=== PATIENT | female | born 1995 | race Two or more races ===

== ENCOUNTER 2018-05-15 17:57 | Inpatient (IN) | payer MEDICAID ==
[~2018-05-15] VITALS: Ht 165.1 cm; Wt 54.5 kg
[2018-05-15] MEDS ORDERED: ZOLPIDEM TARTRATE 10 MG TABLET PO PRN (20:30)
[2018-05-15 20:42] VITALS: BP 138/91
[2018-05-15] MEDS ORDERED: IBUPROFEN 800 MG TABLET PO PRN (21:45)
[2018-05-16 05:23] VITALS: BP 133/79
[2018-05-16] MEDS: LORazepam 2 MG TABLET PO PRN ×3 (05:34→16:23)
[2018-05-16 08:22] LABS: BASOPHILS % (AUTO) 0.5 % (0.0-2.0); EOSINOPHILS % (AUTO) 5.2 % (1.0-6.0); HEMATOCRIT 41.4 % (36-46); HEMOGLOBIN 14.3 g/dL (12.0-16.0); LYMPHOCYTES # (AUTO) 1.7 K/uL (1.0-4.8); MEAN CORPUSCULAR HEMOGLOBIN 32.5 pg (26.0-34.0); MEAN CORPUSCULAR HGB CONC 34.4 G/dL (31.0-37.0); MEAN CORPUSCULAR VOLUME 94 fL (80-100); MONOCYTES # (AUTO) 0.6 K/uL (0.1-1.0); MONOCYTES % (AUTO) 8.6 % (2.0-9.0); NEUTROPHILS # (AUTO) 4.5 K/uL (1.8-7.7); NEUTROPHILS % (AUTO) 62.7 % (40.0-70.0); PLATELET COUNT (AUTO) 212 K/uL (150-450); RED BLOOD CELL COUNT(AUTO) 4.39 MIL/uL (4.00-5.20); RED CELL DISTRIBUTION WIDTH 13.7 % (11.5-14.5)
[2018-05-16 09:00] LABS: ALANINE AMINOTRANSFERASE 22 U/L (12-78); ALBUMIN 3.8 g/dL (3.4-5.0); ALKALINE PHOSPHATASE 54 U/L (46-116); ANION GAP 6 mmol/L (8-16); ASPARTATE AMINOTRANSFERASE 27 U/L (15-37); BILIRUBIN,TOTAL 0.3 mg/dL (0.1-1.0); CALCIUM, TOTAL 8.9 mg/dL (8.8-10.5); CARBON DIOXIDE 31 mmol/L (22-29); CHLORIDE 101 mmol/L (98-107); CHOL/HDL RATIO 2.2 (3.9-5.7); CHOLESTEROL 129 mg/dL (131-200); CREATININE 0.74 mg/dL (0.60-1.30); FREE T4 (FREE THYROXINE) 1.09 ng/dL (0.76-1.46); GLOMERULAR FILTR. RATE CALC > 60 mL/min (>60); GLUCOSE,RANDOM 96 mg/dL (70-110); HCG,QUANTITATIVE < 1 mIU/mL (0-6); HDL CHOLESTEROL 59 mg/dL (40-60); LDL CHOL (CALC.) 61 mg/dL (0-130); POTASSIUM 4.3 mmol/L (3.5-5.1); SODIUM SERUM 138 mmol/L (136-145); THYROID STIMULATING HORMONE 1.68 uIU/mL (0.36-3.74); TOTAL PROTEIN, SERUM 6.8 g/dL (6.4-8.2); TRIGLYCERIDES 47 mg/dL (15-150); UREA NITROGEN, BLOOD 14 mg/dL (7-18)
[2018-05-16 16:12] VITALS: BP 122/79
[2018-05-16] MEDS: HALOPERIDOL 5 MG TABLET PO PRN (16:23)
[2018-05-16] MEDS ORDERED: MAG HYDROX/AL HYDROX/SIMETH ES 30 ML SUSPENSION UDCUP PO PRN (19:00)
[2018-05-16] MEDS ORDERED: PETROLATUM,WHITE 71 GM JELLY TP PRN (19:00)
[2018-05-16] MEDS ORDERED: LOPERAMIDE HCL 2 MG CAPSULE PO PRN (19:00)
[2018-05-16] MEDS ORDERED: DOCUSATE SODIUM 100 MG CAPSULE PO PRN (19:00)
[2018-05-16] MEDS ORDERED: IBUPROFEN 600 MG TABLET PO PRN (19:00)
[2018-05-16] MEDS ORDERED: ALBUTEROL SULFATE HFA 90 MCG/PUFF 8 GM INHALER IH PRN (19:00)
[2018-05-16] MEDS ORDERED: BENZOCAINE/MENTHOL LOZENGE MM PRN (19:00)
[2018-05-16] MEDS ORDERED: MAGNESIUM HYDROXIDE SUSPENSION 30 ML UDCUP PO PRN (19:00)
[2018-05-16] MEDS ORDERED: BACITRACIN 28.4 GM OINTMENT TP PRN (19:00)
[2018-05-16] MEDS ORDERED: ACETAMINOPHEN 325 MG TABLET PO PRN (19:00)
[2018-05-16] MEDS ORDERED: OMEPRAZOLE 20 MG CAPSULE PO PRN (19:00)
[2018-05-16] MEDS ORDERED: CloNIDine HCL 0.1 MG TABLET PO PRN (19:00)
[2018-05-16] MEDS ORDERED: ONDANSETRON HCL 4 MG TABLET PO PRN (19:00)
[2018-05-17 06:26] VITALS: BP 135/81
[2018-05-17 08:08] VITALS: BP 137/73
[2018-05-17] MEDS: LORazepam 2 MG TABLET PO PRN ×2 (08:09→17:08)
[2018-05-17] MEDS: HALOPERIDOL 5 MG TABLET PO PRN ×2 (14:32→21:20)
[2018-05-17 16:08] VITALS: BP 130/74
[2018-05-17] MEDS: RisperiDONE 1 MG TABLET PO SCH (17:08)
[2018-05-17] MEDS: DIVALPROEX SODIUM 500 MG DR TABLET PO SCH (17:32)
[2018-05-18 06:33] VITALS: BP 134/70
[2018-05-18 08:14] VITALS: BP 122/74
[2018-05-18] MEDS: DIVALPROEX SODIUM 500 MG DR TABLET PO SCH ×2 (08:48→16:50)
[2018-05-18] MEDS: RisperiDONE 1 MG TABLET PO SCH ×2 (08:48→16:50)
[2018-05-18] MEDS: HALOPERIDOL 5 MG TABLET PO PRN ×2 (08:48→16:09)
[2018-05-18] MEDS: LORazepam 2 MG TABLET PO PRN ×2 (08:48→16:09)
[2018-05-18 16:10] VITALS: BP 135/76
[2018-05-19] MEDS: LORazepam 2 MG TABLET PO PRN (06:36)
[2018-05-19 07:25] VITALS: BP 132/72
[2018-05-19 08:01] VITALS: BP 123/70
[2018-05-19] MEDS: DIVALPROEX SODIUM 500 MG DR TABLET PO SCH (08:02)
[2018-05-19] MEDS: RisperiDONE 1 MG TABLET PO SCH (08:02)
[2018-05-19] MEDS ORDERED: DIVA-78 PO (12:06)
[2018-05-19] MEDS ORDERED: RISP1 PO (12:06)
== END 2018-05-19 14:25 | disposition home or self-care (01) | DRG 750 ==
LOC: B3A 20:31
PROVIDERS: ADMIT Psychiatry & Neurology Psychiatry; ATTEND Psychiatry & Neurology Psychiatry
DX: F25.9 Schizoaffective disorder, unspecified (principal); F41.9 Anxiety disorder, unspecified; G47.00 Insomnia, unspecified; K59.00 Constipation, unspecified; Z56.0 Unemployment, unspecified
CPT/HCPCS: 83036; 84439; 84443; 87081